=== PATIENT | female | born 1965 | race Caucasian/White ===

== ENCOUNTER → 2023-12-24 | Outpatient (REF) | LOC: M PLAIMG 14:57 | PROVIDERS: ATTEND Internal Medicine | DX: M47.896 Other spondylosis, lumbar region (principal) ==

== ENCOUNTER → 2024-04-20 | Outpatient (REF) | LOC: M PLAIMG 11:45 | PROVIDERS: ATTEND Internal Medicine | DX: M54.50 Low back pain, unspecified (principal); M25.512 Pain in left shoulder ==